=== PATIENT | female | born 1975 | race Caucasian/White ===

== ENCOUNTER 2019-02-04 21:44 | Emergency (ER) | payer BC ==
[2019-02-04 21:55] VITALS: BP 123/93; PULSE 104; RESP 16
[2019-02-04] MEDS ORDERED: KETOROLAC 30 MG/ML 1 ML VIAL IVP STA (22:12)
--- NOTE | 2019-02-04 22:52 | XR ---
EXAM: XR Left Foot Complete, 3 or More Views CLINICAL HISTORY: ITS.REASON XR Reason: Pain TECHNIQUE: Frontal, lateral and oblique views of the left foot. COMPARISON: No relevant prior studies available. FINDINGS: Bones/joints: Unremarkable. No acute fracture. No dislocation. Soft tissues: Moderate dorsal soft tissue swelling. No radiopaque foreign body. IMPRESSION: No evidence of displaced fracture. Moderate dorsal soft tissue swelling. If concern for occult fracture recommend repeat imaging in 10-14 days.
--- NOTE | 2019-02-04 23:29 | ED ---
Lower Extremity Injury HPI - General Source: patient, EMS, RN notes reviewed, old records reviewed Mode of arrival: EMS Limitations: no limitations <Maria Esquivel - Last Filed: 02/05/19 10:54> <Jaclyn Mendez - Last Filed: 02/06/19 06:03> - General Chief Complaint: Extremity Injury, Lower Stated Complaint: L Leg Injury Time Seen by Provider: 02/04/19 21:53 - History of Present Illness Initial Comments: Patient is a 43 year old female whom presents with left foot injury after moving a heavy bench, and it fell onto her foot. She is camping and called EMS for the left foot pain. She reports it immediately swelled. She denies any previous fractures. She reports pain with bearing weight. She reports normal sensation over plantar aspect of foot and full ROM of toes. She denies knee or leg pain. (Maria Esquivel) - Related Data Allergies Allergy/AdvReac Type Severity Reaction Status Date / Time erythromycin base Allergy Rash/Hives Verified 02/04/19 21:49 Penicillins Allergy Rash/Hives Verified 02/04/19 21:49 Review of Systems ROS Other: All systems not noted in ROS Statement are negative. <Maria Esquivel - Last Filed: 02/05/19 10:54> ROS Other: All systems not noted in ROS Statement are negative. <Jaclyn Mendez - Last Filed: 02/06/19 06:03> ROS Statement: Those systems with pertinent positive or pertinent negative responses have been documented in the HPI. Past Medical History Additional Past Medical History / Comment(s): kidney stones Past Surgical History: Section Past Psychological History: No Psychological Hx Reported Smoking Status: Never smoker Past Alcohol Use History: Occasional Past Drug Use History: None Reported <Maria Esquivel - Last Filed: 02/05/19 10:54> General Exam Limitations: no limitations General appearance: alert, in no apparent distress Head exam: Present: atraumatic, normocephalic, normal inspection Eye exam: Present: normal appearance, PERRL, EOMI. Absent: scleral icterus, conjunctival injection, periorbital swelling ENT exam: Present: normal exam, mucous membranes moist Neck exam: Present: normal inspection. Absent: tenderness, meningismus, lymphadenopathy Respiratory exam: Present: normal lung sounds bilaterally. Absent: respiratory distress, wheezes, rales, rhonchi, stridor Cardiovascular Exam: Present: regular rate, normal rhythm, normal heart sounds. Absent: systolic murmur, diastolic murmur, rubs, gallop, clicks GI/Abdominal exam: Present: soft, normal bowel sounds. Absent: distended, tenderness, guarding, rebound, rigid Left Knee exam: Present: normal inspection, full ROM Lower Leg exam: Present: normal inspection, full ROM Ankle exam: Present: normal inspection, full ROM Foot/Toe exam: Present: swelling (over dorsum of foot, tender to palpation over metatarsal 2-5. ). Absent: normal inspection Neurovascular tendon exam: Present: no vascular compromise (palpable dorsalis pedis pulse. ) Neurological exam: Present: alert, oriented X3, CN II-XII intact Psychiatric exam: Present: normal affect, normal mood Skin exam: Present: warm, dry, intact, normal color. Absent: rash <Maria Esquivel - Last Filed: 02/05/19 10:54> - General Exam Comments Initial Comments: This is a 43 year old female, no distress. (Maria Esquivel) Course Vital Signs 02/04/19 21:49 Pulse Rate 104 H Respiratory 16 Rate Blood Pressure 123/93 O2 Sat by Pulse 98 Oximetry Procedures - Orthopedic Splinting/Casting Injury #1 Side: left Lower Extremity Injury Location: foot Lower Extremity Immobilizer: posterior splint, Koko wrap, synthetic pre-padded splint <Maria Esquivel - Last Filed: 02/05/19 10:54> Medical Decision Making - Radiology Data Radiology results: report reviewed <Maria Esquivel - Last Filed: 02/05/19 10:54> <Jaclyn Mendez - Last Filed: 02/06/19 06:03> - Medical Decision Making 43 year old female presents with left foot pain and swelling after a bench fell onto her foot. She has significant soft tissue swelling noted. Dorsalis pedis pulse intact and normal sensation noted. Patient has normal foot xray, negative for acute fracture. Discussed possiblity of hairline fracture and with concern of amount of swelling patient placed in a posterior splint. Discussed repeating imaging in 7-10 days. Discussed she should follow up with ortho, she is from [facility] and given referal to local ortho and ortho oncall. Discussed motrin and tylenol for pain, and written for crutches. (Maria Esquivel) I was available for consultation in the emergency department. The history and physical exam were done by the midlevel provider. I was consulted for this patient's care. I reviewed the case with the midlevel provider and based on their presentation of the patient, I agree with the assessment, medical decision making and plan of care as documented. Chart was dictated using On[employer] dictation software. Attempts were made to correct any dictation errors however some typographical errors may persist. (Jaclyn Mendez) - Radiology Data Left foot Xray is negative for acute fracture, follow up imaging may be preformed in 7-10 days. Soft tissue swelling noted. (Maria Esquivel) Disposition Is patient prescribed a controlled substance at d/c from ED?: No Time of Disposition: 23:24 <Maria Esquivel - Last Filed: 02/05/19 10:54> <Jaclyn Mendez - Last Filed: 02/06/19 06:03> Clinical Impression: Contusion of left foot Disposition: HOME SELF-CARE Condition: Good Instructions (If sedation given, give patient instructions): Foot Contusion (ED) Additional Instructions: Patient advised to rest, ice, and elevate the foot. Patient is advised to use crutches and the scooter. Recommended following up with orthosis 7-10 days for re-x-rays. Return to emergency department if any alarming signs or symptoms occur. Referrals: Farshad Thomas DO [Primary Care Provider] - 1-2 days Darwin Bell DO [REFERRING] - 1-2 days Regino Coyne PAC [PHYSICIAN PERSONNEL PSYCHOLOGIST] - 1-2 days
== END 2019-02-04 23:51 | disposition home or self-care (01) ==
LOC: EC 21:44
DX: S90.32XA Contusion of left foot, initial encounter (principal); Z88.0 Allergy status to penicillin; Z88.1 Allergy status to other antibiotic agents; W20.8XXA Other cause of strike by thrown, projected or falling object, initial encounter
CPT/HCPCS: 73630; 99284; 29515; 96374; J1885